=== PATIENT | female | born 1935 | race Caucasian/White ===

== ENCOUNTER → 2017-06-21 | Outpatient (CLI) | payer OTHER ==
[~2017-06-21] MED LIST: CHOL2000 PO; SUMA25TA3 PO; VIT1CAPS42 PO
== END ==
LOC: STAR 07:44
PROVIDERS: ATTEND Surgery
DX: Z01.818 Encounter for other preprocedural examination (principal); R94.31 Abnormal electrocardiogram [ECG] [EKG]; K44.9 Diaphragmatic hernia without obstruction or gangrene
CPT/HCPCS: 93005

== ENCOUNTER 2017-07-05 09:30 | Day surgery (SDC) | payer OTHER ==
[~2017-07-05] VITALS: Ht 165.1 cm; Wt 59.4 kg
[2017-07-05] MEDS ORDERED: BUPIVACAINE/PF 0.5% ONE (09:58)
[2017-07-05] MEDS ORDERED: EPINEPHRINE 1 MG/ML, 1ML ONE (09:59)
[2017-07-05] MEDS ORDERED: LACTATED RINGERS 1,000 ML IV SCH (10:02)
[2017-07-05] MEDS ORDERED: LIDOCAINE 1%, 2ML ONE (10:05)
[2017-07-05] MEDS ORDERED: LIDOCAINE 1%, 2ML SQ PRN (10:30)
[2017-07-05] MEDS ORDERED: MIDAZOLAM 1 MG/ML, 2ML ONE ×2 (10:47→13:29)
[2017-07-05] MEDS ORDERED: FENTANYL PF 100 MCG/2ML ONE ×3 (10:47→13:15)
[2017-07-05] MEDS ORDERED: BUPIVACAINE/PF-EPI 0.5% 1:200K IM ONE (11:09)
[2017-07-05] MEDS ORDERED: ROCURONIUM 10 MG/ML ONE (11:29)
[2017-07-05] MEDS ORDERED: ONDANSETRON 2MG/ML, 2ML ONE (11:29)
[2017-07-05] MEDS ORDERED: PROPOFOL 10 MG/ML, 20ML ONE (11:29)
[2017-07-05] MEDS ORDERED: CEFAZOLIN 1,000 MG ONE (11:29)
[2017-07-05] MEDS ORDERED: NEOSTIGMINE 1 MG/ML, 10ML ONE (11:29)
[2017-07-05] MEDS ORDERED: GLYCOPYRROLATE 0.2MG/1ML ONE (11:29)
[2017-07-05] MEDS ORDERED: SUCCINYLCHOLINE 20 MG/ML, 10ML ONE (11:29)
[2017-07-05] MEDS ORDERED: DEXAMETHASONE 4 MG/ML, 1ML ONE (11:29)
[2017-07-05] MEDS ORDERED: ACETAMINOPHEN 650 MG/20.3 ML UDC ONE (13:15)
[2017-07-05] MEDS ORDERED: OXYcodone 5 MG/5 ML ORAL.SOL UDC ONE (13:15)
[2017-07-05] MEDS: FENTANYL PF 100 MCG/2ML IV PRN ×2 (13:16→13:24)
[2017-07-05] MEDS ORDERED: HYDROmorphone 1 MG/ML, 1ML ONE (13:27)
[2017-07-05] MEDS ORDERED: hydrALAzine 20 MG/ML, 1ML IV PRN (13:30)
[2017-07-05] MEDS ORDERED: LABETALOL 5MG/ML, 20ML IV PRN (13:30)
[2017-07-05] MEDS ORDERED: ALBUTEROL SULFATE 2.5 MG/3 ML NPPB PRN (13:30)
[2017-07-05] MEDS ORDERED: EPHEDRINE 50 MG/ML, 1ML IVPush PRN (13:30)
[2017-07-05] MEDS ORDERED: HYDROcodone/APAP 7.5-325MG/15ML UDC PO PRN (13:30)
[2017-07-05] MEDS ORDERED: MIDAZOLAM 1 MG/ML, 2ML IV PRN (13:30)
[2017-07-05] MEDS ORDERED: ONDANSETRON 2MG/ML, 2ML IVPush PRN (13:30)
[2017-07-05] MEDS ORDERED: OXYcodone 5 MG/5 ML ORAL.SOL UDC PO PRN (13:30)
[2017-07-05] MEDS ORDERED: HYDROmorphone 1 MG/ML, 1ML IV PRN (13:30)
[2017-07-05] MEDS ORDERED: PROMETHAZINE 25 MG/ML, 1ML IV PRN (13:30)
[2017-07-05] MEDS ORDERED: ACETAMINOPHEN 325 MG TABLET PO PRN (13:30)
[2017-07-05] MEDS ORDERED: METOPROLOL 1 MG/ML, 5ML IV PRN (13:30)
== END 2017-07-05 16:38 ==
LOC: OUT 09:30
PROVIDERS: ATTEND Surgery
DX: K40.90 Unilateral inguinal hernia, without obstruction or gangrene, not specified as recurrent (principal); G43.909 Migraine, unspecified, not intractable, without status migrainosus; Z98.890 Other specified postprocedural states; Z98.49 Cataract extraction status, unspecified eye; Z87.891 Personal history of nicotine dependence; Z72.89 Other problems related to lifestyle
CPT/HCPCS: 49650; C1781; J0171; J0330; J0690; J1100; J1170; J2250; J2405; J2704; J2710; J3010; J3490; J7120

== ENCOUNTER 2019-04-21 17:28 | Emergency (ER) | payer OTHER ==
[~2019-04-21] VITALS: Ht 167.6 cm; Wt 61.0 kg
[2019-04-21 17:31] VITALS: BP 153/88
--- NOTE | 2019-04-21 17:51 | NUR ---
TANVIR DIAZ AT BS NOW.
[2019-04-21] MEDS ORDERED: DIPH,PERTUSS(ACELL),TET VAC/PF 0.5 ML IM-VACC ONE ×2 (18:00→18:03)
[2019-04-21] MEDS ORDERED: L.E.T SOLUTION TP ONE ×2 (18:00→18:04)
--- NOTE | 2019-04-21 19:10 | NUR ---
FACIAL LACERATIONS IRRIGATED BY M[employer]ED [employer]. TANVIR DIAZ AT BS FOR SUTURING NOW.
--- NOTE | 2019-04-21 19:36 | NUR ---
D/C INSTRUCTIONS, MEDS & F/U APPT RV'WD WITH PT AND FRIEND, THEY VERBALIZE UNDERSTANDING. RX GIVEN X1. PT AMBULATED OUT OF ED WITH FRIEND WITHOUT DIFFICULTY.
== END 2019-04-21 19:39 | disposition home or self-care (01) ==
LOC: ED 19:37
DX: S00.37XA Other superficial bite of nose, initial encounter (principal); S00.87XA Other superficial bite of other part of head, initial encounter; G43.909 Migraine, unspecified, not intractable, without status migrainosus; W54.0XXA Bitten by dog, initial encounter; Y93.89 Activity, other specified; Y92.89 Other specified places as the place of occurrence of the external cause; Y99.8 Other external cause status
CPT/HCPCS: 12051; 70486; 90471; 90715

== ENCOUNTER 2019-04-26 06:34 | Emergency (ER) | payer OTHER ==
[~2019-04-26] VITALS: Ht 165.1 cm; Wt 61.4 kg
[2019-04-26 06:36] VITALS: BP 149/83
[2019-04-26] MEDS ORDERED: ABX (06:40)
== END 2019-04-26 08:17 | disposition home or self-care (01) ==
LOC: ED 07:59
DX: S01.21XD Laceration without foreign body of nose, subsequent encounter (principal); G43.909 Migraine, unspecified, not intractable, without status migrainosus; X58.XXXD Exposure to other specified factors, subsequent encounter
CPT/HCPCS: 99281

== ENCOUNTER 2019-09-08 07:01 | Emergency (ER) | payer OTHER ==
[~2019-09-08] VITALS: Ht 165.1 cm; Wt 64.0 kg
[~2019-09-08 07:01] MED LIST changes: +ABX
[2019-09-08 07:07] VITALS: BP 147/66
== END 2019-09-08 08:07 | disposition home or self-care (01) ==
LOC: ED 07:46
DX: L03.012 Cellulitis of left finger (principal); G43.909 Migraine, unspecified, not intractable, without status migrainosus; Z87.891 Personal history of nicotine dependence
CPT/HCPCS: 99283

== ENCOUNTER 2019-09-10 07:19 | Emergency (ER) | payer OTHER ==
[~2019-09-10] VITALS: Ht 165.1 cm; Wt 62.3 kg
[2019-09-10 07:23] VITALS: BP 158/55
--- NOTE | 2019-09-10 07:50 | NUR ---
EMILY Ackerman at bedside to evaluate pt
--- NOTE | 2019-09-10 08:44 | NUR ---
MD Reddy has been at bedside to evaluate pt, placing consult to hand
[2019-09-10] MEDS ORDERED: LIDOCAINE-MPF 1%, 5ML ONE (09:35)
== END 2019-09-10 10:16 | disposition home or self-care (01) ==
LOC: ED 09:37
DX: L03.012 Cellulitis of left finger (principal); G43.909 Migraine, unspecified, not intractable, without status migrainosus
CPT/HCPCS: 26010; 99283

== ENCOUNTER 2019-12-22 07:12 | Emergency (ER) | payer OTHER ==
[~2019-12-22] VITALS: Ht 165.1 cm; Wt 63.4 kg
[2019-12-22 07:17] VITALS: BP 148/70
--- NOTE | 2019-12-22 07:38 | NUR ---
Patient/Caregiver given discharge instructions and they have confirmed that they understand the instructions. Patient ambulatory with steady gait.
== END 2019-12-22 07:40 | disposition home or self-care (01) ==
LOC: ED 07:30
DX: B02.9 Zoster without complications (principal); G43.909 Migraine, unspecified, not intractable, without status migrainosus
CPT/HCPCS: 99283

== ENCOUNTER 2020-02-22 16:02 | Emergency (ER) | payer OTHER ==
[~2020-02-22] VITALS: Ht 165.1 cm; Wt 63.0 kg
[2020-02-22 16:17] VITALS: BP 149/68
[2020-02-22] MEDS ORDERED: DIPH,PERTUSS(ACELL),TET VAC/PF 0.5 ML IM-VACC ONE ×2 (16:30→16:36)
--- NOTE | 2020-02-22 16:30 | NUR ---
TO ROOM FROM LOBBY AT THIS TIME.
[2020-02-22] MEDS ORDERED: NEOSPORIN OINT. PKT 1 PACKET ONE (16:44)
--- NOTE | 2020-02-22 17:03 | NUR ---
Patient given discharge instructions and they have confirmed that they understand the instructions. Patient ambulatory with steady gait.
== END 2020-02-22 17:05 | disposition home or self-care (01) ==
LOC: ED 17:00
DX: S51.811A Laceration without foreign body of right forearm, initial encounter (principal); W54.8XXA Other contact with dog, initial encounter; Y93.89 Activity, other specified; Y92.009 Unspecified place in unspecified non-institutional (private) residence as the place of occurrence of the external cause; Y99.8 Other external cause status
CPT/HCPCS: 12001; 90471; 90715